=== PATIENT | female | born 1995 | race American Indian/Alaskan Native ===

== ENCOUNTER 2016-12-27 14:07 | Emergency (ER) | payer OTHER ==
[2016-12-27 15:28] LABS: Basophils % (Auto) 0.4 % (0.0-1.8); Eosinophils % (Auto) 0.4 % (0.0-4.3); Hematocrit 36.8 % (30.3-42.9); Hemoglobin 11.7 gm/dl (10.1-14.3); Mean Corpuscular HGB Conc 32 % (30-34); Mean Corpuscular Volume 76 fl (79-97); Platelet Count 369 K/mm3 (140-440); Red Blood Count 4.87 M/mm3 (3.65-5.03); Red Cell Distribution Width 14.7 % (13.2-15.2); White Blood Count 16.1 K/mm3 (4.5-11.0)
[2016-12-27 15:29] LABS: Mean Corpuscular Hemoglobin 24 pg (28-32)
[2016-12-27 15:39] LABS: Alanine Aminotransferase 12 units/L (7-56); Albumin 4.2 g/dL (3.9-5); Albumin/Globulin Ratio 1.2 %; Alkaline Phosphatase 71 units/L (35-129); Anion Gap 19 mmol/L; Bilirubin,Total 0.3 mg/dL (0.1-1.2); Blood Urea Nitrogen 6 mg/dL (7-17); Calcium 9.1 mg/dL (8.4-10.2); Carbon Dioxide 22 mmol/L (22-30); Chloride 103.2 mmol/L (98-107); Glucose 92 mg/dL (65-100); Lipase 10 units/L (13-60); Potassium 3.7 mmol/L (3.6-5.0); Sodium 140 mmol/L (137-145); Total Protein 7.6 g/dL (6.3-8.2)
[2016-12-27 16:09] LABS: Bilirubin,Urine NEG (Negative); Blood,Urine SM (Negative); Ketones,Urine TR mg/dL (Negative); Leukocyte Esterase,Urine SM (Negative); Mucus,Urine 3+ /HPF; Nitrite,Urine NEG (Negative)
[2016-12-27] MEDS ORDERED: SUBLIMAZE IV ONE (22:00)
[2016-12-27] MEDS ORDERED: TYLENOL ONE (22:00)
[2016-12-27] MEDS ORDERED: NACL ONE ×2 (22:00→22:48)
[2016-12-27] MEDS ORDERED: NACL 0.9% 1000 ML 1,000 ML IV ONE (22:00)
--- NOTE | 2016-12-27 22:14 | Emergency Department Report ---
ED Abdominal Pain HPI - General Chief Complaint: Abdominal Pain Stated Complaint: ABD PAIN Time Seen by Provider: 12/27/16 21:55 Source: patient Mode of arrival: Ambulatory Limitations: No Limitations - History of Present Illness Initial Comments: Pt is a 21 yr old female with no PMHX, presenting to the ED c/o lower abominal pain. Pt reports pain started 2 days ago, was intermittent now constant sharp aching pain. Radiation to the back. Pt reports she is on her menstrual cycle, but reports this pain is different. Associated fevers, chills, and nausea. Otherwise no vomiting, CP, SOB, trauma, travel, h/o STD's, pelvic discharge, sick contacts, or other complaints MD Complaint: abdominal pain Severity scale (0 -10): 10 - Related Data Home Medications Medication Instructions Recorded Confirmed Last Taken ALBUTEROL Inhaler [ProAir HFA 2 puff IH QID PRN 07/11/16 07/11/16 07/11/16 08:00 Inhaler] Previous Rx's Medication Instructions Recorded Last Taken Type ALBUTEROL Inhaler [ProAir HFA 2 puff IH QID PRN #1 inhalation 07/11/16 Unknown Rx Inhaler] Ipratropium/Albuterol Sulfate 1 ampul IH Q8HR PRN #20 ampul.neb 07/11/16 Unknown Rx [Duoneb 0.5 mg-3 mg/3 ml Soln] Nebulizer/Compressor [Innospire 1 each MC BID PRN #1 each 07/11/16 Unknown Rx Deluxe Leander Neb] Cefdinir 300 mg PO BID #20 capsule 12/28/16 Unknown Rx Allergies Allergy/AdvReac Type Severity Reaction Status Date / Time No Known Allergies Allergy Verified 07/11/16 10:43 ED Review of Systems ROS: Stated complaint: ABD PAIN Other details as noted in HPI Comment: All other systems reviewed and negative ED Past Medical Hx - Past Medical History Previous Medical History?: No Hx Asthma: Yes - Social History Smoking Status: Current Every Day Smoker Substance Use Type: None - Medications Home Medications: Home Medications Medication Instructions Recorded Confirmed Last Taken Type ALBUTEROL Inhaler [ProAir HFA 2 puff IH QID PRN 07/11/16 07/11/16 07/11/16 08: 00 History Inhaler] ALBUTEROL Inhaler [ProAir HFA 2 puff IH QID PRN #1 inhalation 07/11/16 Unknown Rx Inhaler] Ipratropium/Albuterol Sulfate 1 ampul IH Q8HR PRN #20 ampul.neb 07/11/16 Unknown Rx [Duoneb 0.5 mg-3 mg/3 ml Soln] Nebulizer/Compressor [Innospire 1 each MC BID PRN #1 each 07/11/16 Unknown Rx Deluxe Leander Neb] Cefdinir 300 mg PO BID #20 capsule 12/28/16 Unknown Rx ED Physical Exam - General Limitations: No Limitations General appearance: alert, in no apparent distress, other (warm to touch) - Head Head exam: Present: atraumatic, normocephalic - Eye Eye exam: Present: normal appearance - ENT ENT exam: Present: mucous membranes moist - Neck Neck exam: Present: normal inspection - Respiratory Respiratory exam: Present: normal lung sounds bilaterally. Absent: respiratory distress - Cardiovascular Cardiovascular Exam: Present: normal rhythm, tachycardia. Absent: irregular rhythm, systolic murmur, diastolic murmur, rubs, gallop - GI/Abdominal GI/Abdominal exam: Present: soft, tenderness, normal bowel sounds. Absent: distended, guarding, rebound, rigid (suprapubic and RLQ) - Extremities Exam Extremities exam: Present: normal inspection - Back Exam Back exam: Present: normal inspection - Neurological Exam Neurological exam: Present: alert, oriented X3 - Psychiatric Psychiatric exam: Present: normal affect, normal mood - Skin Skin exam: Present: warm, dry, intact, normal color. Absent: rash ED Course Vital Signs 12/27/16 12/27/16 12/27/16 14:57 19:54 21:36 Temperature 98.7 F 99.6 F 101 F H Pulse Rate 113 H 110 H 116 H Respiratory 18 18 12 Rate Blood Pressure 123/74 132/78 Blood Pressure 123/75 [Left] O2 Sat by Pulse 100 99 100 Oximetry 12/27/16 12/28/16 22:52 00:08 Temperature 100 F H 99.4 F Pulse Rate 114 H 103 H Respiratory 12 12 Rate Blood Pressure Blood Pressure 125/77 125/77 [Left] O2 Sat by Pulse 98 100 Oximetry ED Medical Decision Making - Lab Data Result diagrams: 12/27/16 15:04 12/27/16 15:04 - Medical Decision Making Ordered ceftriaxone 1gm IVPB for UTI Repeat temp improved, HR improving Critical care attestation.: If time is entered above; I have spent that time in minutes in the direct care of this critically ill patient, excluding procedure time. ED Disposition Clinical Impression: Abdominal pain, UTI (lower urinary tract infection), Fever Disposition: DISCHARGED TO HOME OR SELFCARE Is pt being admited?: No Condition: Stable Instructions: Abdominal Pain (ED), Urinary Tract Infection in Women (ED) Prescriptions: Cefdinir 300 mg PO BID #20 capsule Referrals: PRIMARY CARE, [Primary Care Provider] - 3-5 Days
[2016-12-27 22:54] VITALS: BP 125/77
--- NOTE | 2016-12-27 23:07 | Cat Scan Report ---
FINAL REPORT EXAM: CT ABDOMEN PELVIS W CON HISTORY: abd pain TECHNIQUE: Serial axial images through the abdomen and pelvis with coronal and sagittal reconstruction. Intravenous administration of 100 milliliters Omni 300 contrast PRIORS: None. FINDINGS: No focal consolidations are seen in the lung bases. No pleural effusion is seen. The liver, gallbladder, pancreas, spleen and adrenal glands appear within normal limits. Kidneys appear normal. Aorta is normal in caliber. Bladder appears normal. No gross abnormality is seen in uterus or adnexa. No free fluid. Appendix appears normal. There is not evidence of bowel obstruction. No acute osseous abnormality is identified. IMPRESSION: 1. Appendix appears within normal limits. 2. There is not evidence of bowel obstruction at this time. 3. No free fluid or inflammatory changes are seen in the abdomen or pelvis.
[2016-12-27] MEDS ORDERED: ROCEPHIN/NS 1 GM/50 ML 1 GM/50 ML BAG IV ONE (23:17)
== END 2016-12-28 01:35 | disposition home or self-care (01) ==
LOC: ED 14:07
DX: N39.0 Urinary tract infection, site not specified (principal); R10.30 Lower abdominal pain, unspecified; R50.9 Fever, unspecified; J45.909 Unspecified asthma, uncomplicated; F17.200 Nicotine dependence, unspecified, uncomplicated
CPT/HCPCS: 36415; 74177; 80053; 81001; 81025; 83690; 85025; 96365; 96367; 96375; 99284; J0696; J3010; J7030; Q9967